=== PATIENT | female | born 1960 | race Caucasian/White ===

== ENCOUNTER 2017-09-17 08:50 | Outpatient (CLI) | payer OTHER ==
[2017-09-17 09:51] LABS: CHOL/HDL RATIO 3.1 (<4.4); CHOLESTEROL 205 mg/dL; HDL CHOLESTEROL 66 mg/dL; LDL CHOLESTEROL,CALCULATED 114 mg/dL; LDL/HDL RATIO 1.7 (<4.4); VLDL CHOLESTEROL 25 mg/dL
== END 2017-09-17 08:51 | disposition home or self-care (01) ==
LOC: LAB 08:50
PROVIDERS: ATTEND Physician Assistant
DX: E78.5 Hyperlipidemia, unspecified (principal)
CPT/HCPCS: 80061; 83721; 84443

== ENCOUNTER 2018-08-22 13:30 | Outpatient (CLI) | payer OTHER ==
--- NOTE | 2018-08-23 08:43 | Mammography Report ---
Reason: SCREENING MAMMO Procedure Date: 08/22/2018 Accession Number: [id number] / [id number] Procedure: KALYANI - Screening Mammo w/Brian CPT Code: FULL RESULT: EXAM: Screening Mammo w/Brian DATE: 08/22/2018 2:11 PM CLINICAL HISTORY: Screening encounter. History of nulliparity. TECHNIQUE: Bilateral CC and MLO views were obtained. COMPARISON: 11/02/2015 through 11/18/2013. FINDINGS: The breasts demonstrate heterogeneously dense fibroglandular parenchyma bilaterally. There are coarse typically benign calcifications in the right breast. At the 6:00 position in the left breast approximately 5.7 cm deep to the nipple is a partially obscured 6 mm isodense nodule best identified on 3-D tomography; while this possibly represents an intramammary lymph node, the finding is essentially obscured on prior studies and additional imaging is required for characterization with spot compression views as well as ultrasound of the left breast. No suspicious masses, clustered microcalcifications, or regions of architectural distortion are identified on the right. IMPRESSION: Incomplete examination RECOMMENDATION: Additional evaluation of the left breast with spot compression views and ultrasound as above. BIRADS CATEGORY 0: Incomplete examination STANDARD QUALIFYING STATEMENTS: 1. This examination was not reviewed with the aid of Computer-Aided Detection (CAD). 2. A negative or benign imaging report should not preclude biopsy if clinically suspicious findings are present. 3. Dense breasts may obscure an underlying neoplasm. 4. This examination was reviewed with the aid of 3D breast imaging (tomosynthesis).
== END 2018-08-22 13:31 | disposition home or self-care (01) ==
LOC: DI 13:30
DX: Z12.31 Encounter for screening mammogram for malignant neoplasm of breast (principal)
CPT/HCPCS: 77063; 77067

== ENCOUNTER 2018-10-11 06:21 | Outpatient (CLI) | payer OTHER ==
[2018-10-11 06:53] LABS: ALBUMIN 4.3 g/dL (3.2-5.5); ALBUMIN/GLOBULIN RATIO 1.3 (1.0-2.2); ALKALINE PHOSPHATASE 59 IU/L (42-121); ALT ALANINE AMINOTRANSFERASE 41 IU/L (10-60); AST ASPARTATE AMINOTRANSFERASE 32 IU/L (10-42); BILIRUBIN,TOTAL 1.7 mg/dL (0.2-1.0); BUN - BLOOD UREA NITROGEN 21 mg/dL (6-20); CALCIUM 9.3 mg/dL (8.5-10.3); CARBON DIOXIDE - CO2 27 mmol/L (21-32); CHLORIDE 99 mmol/L (101-111); CHOL/HDL RATIO 3.1 (<4.4); CHOLESTEROL 232 mg/dL; CREATININE 0.8 mg/dL (0.4-1.0); GFR - MDRD 74 (>89); GLUCOSE 99 mg/dL (70-100); HDL CHOLESTEROL 74 mg/dL; LDL CHOLESTEROL,CALCULATED 129 mg/dL; LDL/HDL RATIO 1.7 (<4.4); SODIUM 135 mmol/L (135-145); TOTAL PROTEIN 7.5 g/dL (6.7-8.2); VLDL CHOLESTEROL 29 mg/dL
[2018-10-11 07:43] LABS: THYROID STIMULATING HORMONE 1.09 uIU/mL (0.34-5.60)
[2018-10-11 07:45] LABS: FREE T4 (FREE THYROXINE) 1.07 ng/dL (0.58-1.64)
== END 2018-10-11 06:22 | disposition home or self-care (01) ==
LOC: LAB 06:21
PROVIDERS: ATTEND Physician Assistant
DX: E78.2 Mixed hyperlipidemia (principal); E06.3 Autoimmune thyroiditis
CPT/HCPCS: 36415; 80053; 80061; 83721; 84439; 84443

== ENCOUNTER 2018-10-11 14:38 | Outpatient (CLI) | payer OTHER ==
--- NOTE | 2018-10-11 16:03 | Mammography Report ---
Reason: ABN MAMMO Procedure Date: 10/11/2018 Accession Number: [id number] / [id number] Procedure: KALYANI - Diag Special Views Dig LT CPT Code: FULL RESULT: EXAM: Diag Special Views Dig LT DATE: 10/11/2018 3:13 PM CLINICAL HISTORY: Diagnostic left breast mammogram for abnormal screening mammogram. Finding of isodense partially obscured nodule. TECHNIQUE: Left breast spot CC, spot MLO and ML views were obtained. Focused left breast ultrasound was performed. COMPARISON: 08/22/2018 through 03/27/2009. FINDINGS: The left breast is heterogeneously dense. The nodule is isodense, ovoid, measuring 5 mm and well-circumscribed, probably benign appearance. Focused left breast ultrasound identified a hypoechoic wider than tall ovoid well-circumscribed structure with no suspicious features that is not characterized as a simple cyst or benign-appearing lymph node, probably benign. No suspicious mass architectural distortion or calcifications are identified. IMPRESSION: Probable benign findings RECOMMENDATION: Recommend diagnostic left breast ultrasound in 6 months. BIRADS CATEGORY 3 STANDARD QUALIFYING STATEMENTS: 1. This examination was not reviewed with the aid of Computer-Aided Detection (CAD). 2. A negative or benign imaging report should not delay biopsy if clinically suspicious findings are present. Consider surgical consultation if warrented. More than 5% of cancers are not identified by imaging. 3. Dense breasts may obscure an underlying neoplasm. 4. This examination was reviewed with the aid of 3D imaging (tomography).
== END 2018-10-11 14:39 | disposition home or self-care (01) ==
LOC: DI 14:38
PROVIDERS: ATTEND Physician Assistant
DX: R92.2 Inconclusive mammogram (principal); N63.0 Unspecified lump in unspecified breast; E78.2 Mixed hyperlipidemia; E06.3 Autoimmune thyroiditis
CPT/HCPCS: 36415; 76642; 80053; 80061; 84439; 84443

== ENCOUNTER 2019-05-16 13:13 | Outpatient (CLI) | payer OTHER ==
--- NOTE | 2019-05-17 16:06 | Ultrasound Report ---
Reason: ABNORMAL MAMMOGRAM Procedure Date: 05/16/2019 Accession Number: [id number] / [id number] Procedure: US - Breast Unilateral Limited CPT Code: FULL RESULT: EXAM: Breast Unilateral Limited DATE: 05/16/2019 3:20 PM CLINICAL HISTORY: Follow-up of probably benign left breast nodule. Diagnostic examination. ? COMPARISON: None. TECHNIQUE: Targeted ultrasound was performed of the left breast in the area of clinical concern at 5:30 o'clock and 4 distance from the nipple. ?Color Doppler was employed as appropriate. ? FINDINGS: The previously seen probably benign wider than tall 0.5 x 0.2 cm hypoechoic well-circumscribed nodule is redemonstrated with no interval change. No suspicious features are identified. IMPRESSION: Stability of probably benign nodule. BI-RADS 3 Recommendation: Diagnostic mammogram of the left breast at the time of annual right breast screening mammogram. This limited?breast?ultrasound?was?tailored to address the acute clinical issue. Recommend diagnostic follow-up at a?designated FDA/MQSA certified?breast?imaging facility for more detailed and complete?evaluation. RADIA
== END 2019-05-16 13:14 | disposition home or self-care (01) ==
LOC: DI 13:13
PROVIDERS: ATTEND Physician Assistant
DX: R92.8 Other abnormal and inconclusive findings on diagnostic imaging of breast (principal)
CPT/HCPCS: 76642

== ENCOUNTER 2020-07-01 10:48 | Outpatient (CLI) | payer BC ==
--- NOTE | 2020-07-02 13:22 | Mammography Report ---
BILATERAL DIGITAL DIAGNOSTIC MAMMOGRAM 3D/2D: 07/01/2020 CLINICAL: Patient returns for short term follow-up of a probably benign mass in the left breast. Comparison is made to exams dated: 05/16/2019 ultrasound, 10/11/2018 ultrasound, 10/11/2018 mammogram, 08/22/2018 mammogram, 11/02/2015 mammogram, and 11/18/2013 mammogram - [facility]. The re are scattered fibroglandular elements in both breasts. There is a stable focal asymmetry in the left breast at 6 o'clock posterior depth. No other significant masses, calcifications, or other findings are seen in either breast. IMPRESSION: INCOMPLETE: NEEDS ADDITIONAL IMAGING EVALUATION The stable focal asymmetry in the left breast is indeterminate. A targeted ultrasound of the left br east is recommended and will be performed immediately following this exam. This exam was interpreted at Station ID: [id number]. NOTE: For mammograms, a report in lay terms will be sent to the patient. Approximately 15% of breast malignancies will not be visualized mammographically. In the management of a palpable breast mass, a negative mammogram must not discourage biopsy of a clinically suspicious lesion. Electronically Signed By: Luana Solorzano M.D. lk/:07/01/2020 11:47:36 ACR BI-RADS Category 0: Incomplete 3340F PARENCHYMAL PATTERN: (A) - The breast(s) demonstrate(s) scattered fibroglandular densities. BI-RADS CATEGORY: (0) - 0 Ultrasound [id number] Immediate follow-up LATERALITY: (B)
--- NOTE | 2020-07-02 13:22 | Ultrasound Report ---
LIMITED ULTRASOUND OF LEFT BREAST: 07/01/2020 CLINICAL: Patient returns for short term follow-up of a probably benign mass in the left breast. Comparison is made to exams dated: 07/01/2020 mammogram, 05/16/2019 ultrasound, 10/11/2018 ultrasound, 10/11/2018 mammogram, 08/22/2018 mammogram, and 11/02/2015 mammogram - [facility]. Ultrasound of the left breast 5 o'clock region was performed on the area of interest. There is a stable cyst in the left breast at 6 o'clock middle depth. This cyst displays internal ech oes and correspoands to the mammographic finding. IMPRESSION: PROBABLY BENIGN The stable cyst in the left breast is consistent with a complicated cyst and is probably benign. A follow-up ultrasound in 6 months is recommended to demonstrate stability. This exam was interpreted at Station ID: [id number]. Electronically Signed By: Luana Solorzano M.D. lk/:07/01/2020 12:18:02 Ultrasound BI-RADS: 3 Probably benign BI-RADS CATEGORY: (3) - 3 Ultrasound [id number] 6 month follow-up LATERALITY: (B)
== END 2020-07-01 10:49 | disposition home or self-care (01) ==
LOC: DI 10:48
PROVIDERS: ATTEND Nurse Practitioner Family
DX: N60.02 Solitary cyst of left breast (principal)
CPT/HCPCS: 76642; 77066

== ENCOUNTER 2021-02-10 11:14 | Outpatient (CLI) | payer BC ==
--- NOTE | 2021-02-11 14:23 | Ultrasound Report ---
LIMITED ULTRASOUND OF LEFT BREAST: 02/10/2021 CLINICAL: Patient returns today to evaluate a focal asymmetry in the left breast. Comparison is made to exams dated: 02/10/2021 mammogram, 07/01/2020 ultrasound, 07/01/2020 mammogram, 05/16/2019 ultrasound, 10/11/2018 ultrasound, and 10/11/2018 mammogram - [facility]. Color flow and real-time ultrasound of the left breast 5 o'clock region were performed. Mancia scale images of the real-time examination were reviewed. There is a stable 0.4 cm x 0.2 cm x 0.4 cm wider than tall oval cyst in the left breast at 5:30 o'pricila ck posterior depth 4 cm from the nipple. This oval cyst is hypoechoic. This correlates with mammogr aphy findings. Color flow imaging demonstrates that there is no vascularity present. IMPRESSION: BENIGN There is no sonographic evidence of malignancy. The stable 0.4 cm x 0.2 cm x 0.4 cm wider than tall oval cyst in the left breast 5:30 o'clock 4 cm fr om the nipple is a benign complicated cyst as it has remained stable for over two years. Return to screening. Bilateral mammogram in 6 months is recommended to restart screening schedule. Findings and recommendations were conveyed to the patient during today's evaluation. This exam was interpreted at Station ID: [id number]. Electronically Signed By: Yves Melara M.D. aty/:02/10/2021 12:56:49 Ultrasound BI-RADS: 2 Benign BI-RADS CATEGORY: (2) - 2 Mammogram [id number] 6 month follow-up LATERALITY: (B)
--- NOTE | 2021-02-11 14:23 | Mammography Report ---
UNILATERAL LEFT DIGITAL DIAGNOSTIC MAMMOGRAM 3D/2D: 02/10/2021 CLINICAL: Patient returns for a 6 month follow up of the left breast. Comparison is made to exams dated: 07/01/2020 mammogram, 05/16/2019 ultrasound, 10/11/2018 ultrasound, 10/11/2018 mammogram, 08/22/2018 mammogram, and 11/02/2015 mammogram - [facility]. Th ere are scattered fibroglandular elements in left breast. There is a stable focal asymmetry in the left breast at 6 o'clock posterior depth. No other significant masses or calcifications are seen in the breast. IMPRESSION: INCOMPLETE: NEEDS ADDITIONAL IMAGING EVALUATION The stable focal asymmetry in the left breast is indeterminate. A targeted ultrasound of the left br east is recommended and will be performed immediately following this exam. This exam was interpreted at Station ID: [id number]. NOTE: For mammograms, a report in lay terms will be sent to the patient. Approximately 15% of breast malignancies will not be visualized mammographically. In the management of a palpable breast mass, a negative mammogram must not discourage biopsy of a clinically suspicious lesion. Electronically Signed By: Yves Melara M.D. aty/:02/10/2021 12:52:16 ACR BI-RADS Category 0: Incomplete 3340F PARENCHYMAL PATTERN: (A) - The breast(s) demonstrate(s) scattered fibroglandular densities. BI-RADS CATEGORY: (0) - 0 Ultrasound [id number] Immediate follow-up LATERALITY: (L)
== END 2021-02-10 11:15 | disposition home or self-care (01) ==
LOC: DI 11:14
PROVIDERS: ATTEND Nurse Practitioner Family
DX: N60.02 Solitary cyst of left breast (principal)

== ENCOUNTER 2022-01-05 07:36 | Outpatient (CLI) | payer BC, OTHER ==
[2022-01-05 14:13] LABS: BASOPHILS % (AUTO) 0.9 %; EOSINOPHILS # (AUTO) 0.2 10^3/uL (0.0-0.7); EOSINOPHILS % (AUTO) 3.9 %; HCT - HEMATOCRIT 43.6 % (37.0-47.0); HGB - HEMOGLOBIN 14.7 g/dL (12.0-16.0); LYMPHOCYTES # (AUTO) 1.4 10^3/uL (1.5-3.5); LYMPHOCYTES % (AUTO) 31.2 %; MEAN CORPUSCULAR HEMOGLOBIN 29.7 pg (27.0-31.0); MEAN CORPUSCULAR HGB CONC 33.7 g/dL (32.0-36.0); MEAN CORPUSCULAR VOLUME 88.1 fL (81.0-99.0); MEAN PLATELET VOLUME 9.3 fL (7.9-10.8); MONOCYTES # (AUTO) 0.4 10^3/uL (0.0-1.0); MONOCYTES % (AUTO) 8.9 %; NEUTROPHILS # (AUTO) 2.4 10^3/uL (1.5-6.6); NEUTROPHILS % (AUTO) 54.9 %; PLT - PLATELET COUNT 288 10^3/uL (130-450); RED BLOOD COUNT 4.95 10^6/uL (4.20-5.40); RED CELL DISTRIBUTION WIDTH 12.9 % (12.0-15.0); WHITE BLOOD COUNT 4.4 x10^3/uL (4.8-10.8)
[2022-01-05 14:50] LABS: THYROID STIMULATING HORMONE 1.14 uIU/mL (0.34-5.60)
[2022-01-05 15:07] LABS: ALBUMIN 4.5 g/dL (3.2-5.5); ALBUMIN/GLOBULIN RATIO 1.6 (1.0-2.2); ALKALINE PHOSPHATASE 67 IU/L (42-121); ALT ALANINE AMINOTRANSFERASE 23 IU/L (10-60); AST ASPARTATE AMINOTRANSFERASE 23 IU/L (10-42); BILIRUBIN,DIRECT 0.1 mg/dL (0.1-0.5); BILIRUBIN,TOTAL 1.4 mg/dL (0.2-1.0); BUN - BLOOD UREA NITROGEN 23 mg/dL (6-20); CHOL/HDL RATIO 2.8 (<4.4); CHOLESTEROL 216 mg/dL; CREATININE 0.9 mg/dL (0.4-1.0); GFR - MDRD 64 (>89); HDL CHOLESTEROL 78 mg/dL; LDL CHOLESTEROL,CALCULATED 104 mg/dL; LDL/HDL RATIO 1.3 (<4.4); TOTAL PROTEIN 7.3 g/dL (6.7-8.2); TRIGLYCERIDES 171 mg/dL; VLDL CHOLESTEROL 34 mg/dL
[2022-01-05 15:43] LABS: CALCIUM 9.7 mg/dL (8.5-10.3); CARBON DIOXIDE - CO2 25 mmol/L (21-32); CHLORIDE 105 mmol/L (101-111); GLUCOSE 99 mg/dL (70-100); POTASSIUM 4.1 mmol/L (3.5-5.0); SODIUM 140 mmol/L (135-145)
== END 2022-01-05 07:37 | disposition home or self-care (01) ==
LOC: LAB.S 07:36
PROVIDERS: ATTEND Physician Assistant
DX: E06.3 Autoimmune thyroiditis (principal); E78.5 Hyperlipidemia, unspecified; B35.1 Tinea unguium
CPT/HCPCS: 36415; 80053; 80061; 82248; 83721; 84443; 85025

== ENCOUNTER 2023-04-20 08:54 | Outpatient (CLI) | payer OTHER ==
--- NOTE | 2023-04-20 11:55 | XRAY Report ---
PROCEDURE: Wrist 3 View LT INDICATIONS: PAIN OF LEFT WRIST TECHNIQUE: 3 views of the wrist were acquired. COMPARISON: None. FINDINGS: Bones: No fractures or dislocations. No suspicious bony lesions. Soft tissues: No suspicious soft tissue calcifications or masses. IMPRESSION: No acute bony abnormality. If there is anatomic snuff box tenderness, consider wrist immobilization a nd repeat radiographs in 10-14 days or cross-sectional imaging now. If pain persists with conservativ e management, consider repeat radiographs in 10-14 days or cross-sectional imaging. Reviewed by: Ferdinand Ruano MD on 04/20/2023 11:54 AM PDT Approved by: Ferdinand Ruano MD on 04/20/2023 11:54 AM PDT Station ID: [id number]
== END 2023-04-20 08:55 | disposition home or self-care (01) ==
LOC: DI.S 08:54
PROVIDERS: ATTEND Physician Assistant
DX: M25.532 Pain in left wrist (principal)

== ENCOUNTER 2023-09-05 12:59 | Outpatient (CLI) | payer OTHER ==
--- NOTE | 2023-09-06 12:58 | Mammography Report ---
BILATERAL DIGITAL SCREENING MAMMOGRAM 3D/2D WITH EXAGGERATED CC: 09/05/2023 CLINICAL: Routine screening. Comparison is made to exams dated: 05/17/2022 mammogram, 02/10/2021 mammogram, 07/01/2020 mammogram, a nd 10/11/2018 mammogram - [facility]. Both breasts are heterogeneously dense, which may obscure small masses (category c / 51-75% glandular tissue). No significant masses, calcifications, or other findings are seen in either breast. There has been no significant interval change. IMPRESSION: NEGATIVE There is no mammographic evidence of malignancy. A 1 year screening mammogram is recommended. Based on the Tyrer Cuzick model (a risk assessment model) the patients lifetime risk is 11.1% and her 10 year risk is 4.7%. According to the ACR, ACS, and NCCN guidelines, an annual breast MRI exam genoveva g with mammogram is recommended if the patients lifetime risk is 20% or greater. This exam was interpreted at Station ID: [id number]. NOTE: For mammograms, a report in lay terms will be sent to the patient. Approximately 15% of breast malignancies will not be visualized mammographically. In the management of a palpable breast mass, a negative mammogram must not discourage biopsy of a clinically suspicious lesion. Electronically Signed By: Yves duke/anabel:09/05/2023 16:04:48 ACR BI-RADS Category 1: Negative 3341F PARENCHYMAL PATTERN: (D) - The breast(s) demonstrate(s) heterogeneously dense fibroglandular beni michel. BI-RADS CATEGORY: (1) - 1 Mammogram [id number] 1 year screening LATERALITY: (B)
== END 2023-09-05 13:00 | disposition home or self-care (01) ==
LOC: DI.S 12:59
PROVIDERS: ATTEND Nurse Practitioner Family
DX: Z12.31 Encounter for screening mammogram for malignant neoplasm of breast (principal); R92.333 Mammographic heterogeneous density, bilateral breasts

== ENCOUNTER 2024-01-01 16:45 | Outpatient (CLI) | payer OTHER ==
--- NOTE | 2024-01-01 21:38 | XRAY Report ---
PROCEDURE: Cervical Spine 4-5V INDICATIONS: NECK AND ARM PAIN TECHNIQUE: 6 views of the cervical spine acquired. COMPARISON: None. FINDINGS: Bones: No fractures or dislocations to the C6 level. There is moderate degenerative disc height loss and mild anterior and posterior endplate spurs at C5-6 level. Moderate facet arthropathy, left worse than right. This results in [id number]-[id number] left foraminal stenosis at C5-6 level. Right neural for amen are widely patent. Soft tissues: No prevertebral soft tissue swelling. IMPRESSION: No cervical vertebral body fracture or traumatic subluxation. Degenerative endplate and facet joint changes in the mid cervical spine causing [id number] left -sided foraminal narrowing and disc height loss at C5-6. Reviewed by: Omaira Xavier MD on 01/01/2024 9:37 PM PDT Approved by: Omaira Xavier MD on 01/01/2024 9:37 PM PDT Station ID: [id number]
== END 2024-01-01 16:46 | disposition home or self-care (01) ==
LOC: DI.S 16:45
PROVIDERS: ATTEND Chiropractor
DX: M47.812 Spondylosis without myelopathy or radiculopathy, cervical region (principal)

== ENCOUNTER 2024-03-22 13:20 | Outpatient (CLI) | payer OTHER ==
--- NOTE | 2024-03-24 13:11 | CT Report ---
PROCEDURE: Orbits WO INDICATIONS: ENOPHTHALMOS TECHNIQUE: Noncontrast 2.0 mm axial images acquired through the orbits. For radiation dose reduction, the follo wing was used: automated exposure control, adjustment of mA and/or kV according to patient size. COMPARISON: None FINDINGS: Orbits: Bilateral intraocular lens replacements. The posterior sclera is 6.9 mm posterior to the inte rzygomatic line. The retrobulbar fat is unremarkable. No evidence of mass lesion or orbital varix. There is bilateral lateral rectus atrophy. The muscle belly shows evidence of fatty infiltration, and measures 2.5 mm on the right and 2.3 mm on the left. Remainder of the extraocular muscles are unrema rkable. No metallic foreign bodies. The optic nerves are normal in size. No retrobulbar masses or fat abnor malities. Lacrimal glands are normal in size. Optic chiasm is normal. Intracranial: Visualized portions of the cerebral hemispheres, brainstem, and spinal cord are normal . Bones and sinuses: Visualized calvarium and facial bones appear intact. Visualized sinuses and mast oids are clear. 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 Reviewed by: Anibal Bruno MD on 03/24/2024 12:10 PM GEENA Approved by: Anibal Bruno MD on 03/24/2024 12:10 PM AKDT Station ID: [id number]
== END 2024-03-22 13:21 | disposition home or self-care (01) ==
LOC: DI 13:20
PROVIDERS: ATTEND Ophthalmology
DX: H05.403 Unspecified enophthalmos, bilateral (principal)